=== PATIENT | female | born 1985 | race Caucasian/White ===

== ENCOUNTER 2025-06-05 05:24 | Emergency (ER) | payer OTHER, SELFPAY ==
[2025-06-05 05:26] VITALS: BP 128/83
[2025-06-05 06:39] LABS: Hematocrit 39.3 % (37.0-47.0); Hemoglobin 13.3 g/dL (12.0-16.0); Mean Corp Hgb Conc. 33.8 g/dL (33.0-37.0); Mean Corpuscular Volume 82.6 fL (81.0-99.0); Nucleated Red Blood Cells % 0 %; Platelet Count 267 10^3/uL (130-400); Red Cell Dist. Width 13.2 % (11.5-14.5)
--- NOTE | 2025-06-05 07:04 | ED.GENMED ---
Addendum entered and electronically signed by Giovanna Urias NP 06/07/25 07:10:
Pt called, she discussed neg Hep B immunity with [facility] and is scheduled to f/u there.
Original Note:
History of Present Illness
General
Chief Complaint: Blood and Body Fluid Exposure
Source: patient
Exam Limitations: none
Time Seen by Provider: 06/05/25 06:07
Nursing documentation reviewed up to this point in time: agreed with
History of Present Illness
History of Present Illness:
40-year-old female with no reported chronic medical issues presents to the ER for evaluation after an occupational exposure. 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 She says that she was working with a patient who reported possible HIV positive
And apparently has history of polysubstance use. She was unhooking and removing IV line which splashed into her eyes mostly in her right eye. Patient did wash out her eyes immediately and came to the ER for evaluation. Exposure source testing is
pending. Patient has no acute complaints.
Review of Systems
Review of Systems
All Other Systems: ROS reviewed and negative except as documented in HPI and ROS
Constitutional: Denies fever
EENT: Reports other (Denies eye pain)
Phy Exam
Physical Exam
Physical Exam:
General: Well appearing and non-toxic
HEENT: protecting airway
Neck: appears supple
CV: No evidence of cyanosis
Resp: No accessory muscle use
Abd: Non-distended
Extremities: No deformities
Neuro: Alert
Psych: Normal affect
Skin: Intact
Scores
Heart Failure Risk
Heart Failure Risk Score: Not Applicable
Heart Score for Chest Pain Patients
STEMI patient?: Not applicable
Withdrawal Assessment of Alcohol
Withdrawal Assessment Completed?: Not applicable
Course
Orders/Labs/Results
Orders:
Orders
06/05/25 06:10
Pt has had a significant HIV exposure? Routine
HIV Exposure is significant?: Yes
06/05/25 06:11
Test Result ONCE
06/05/25 06:27
Complete Blood Count/With Diff Urgent
Comprehensive Metabolic Panel Urgent
HCG, Serum Qualitative Screen Urgent
HIV Combo Urgent
Hepatitis B Surface Antibody Urgent
Hepatitis B Surface Antigen Urgent
Hepatitis C Antibody Urgent
06/05/25 06:35
Emtricitabine/Tenofovir [Truvada Tablet] 1 tablet PO NOW STA
Raltegravir Potassium [Isentress] 400 mg PO NOW STA
Abnormal Lab Results
06/05/25
06:27
Absolute Lymphs (auto) 3.7 H 10^3/uL
(1.2-3.4)
06/05/25 06:27
Vital Signs
Initial and Last Documented VS:
Initial Vital Signs
Temp Pulse Resp BP Pulse Ox
36.7 C 82 18 128/83 97
06/05/25 05:26 06/05/25 05:26 06/05/25 05:26 06/05/25 05:26 06/05/25 05:26
Last Documented Vital Signs
Temp Pulse Resp BP Pulse Ox
36.7 C 82 18 128/83 97
06/05/25 05:26 06/05/25 05:26 06/05/25 05:26 06/05/25 05:26 06/05/25 05:26
MDM/Problems Addressed
Differential Diagnosis Includes:
Occupational exposure
MDM/Problems Addressed:
40-year-old female presents after occupational exposure�IV line unhooked and splashed in patient's face. Patient washed out eyes. We sent basic screening labs, hepatitis and HIV panel. Source patient testing is pending. Will initiate
postexposure prophylaxis. Follow-up with occupational health. I texted physicians blacksmith assistant for occupational health to facilitate follow-up. Spoke to patient about precautions regarding postexposure prophylactic medications including avoiding
, we spoke about follow-up in detail and all questions were answered.
*Pulse Oximetry
SaO2: 97
Oxygen Mode of Delivery: Room air
Patient hypoxic: no (97%)
*Critical Care Note
Total Time (30-74mins, 75-104mins- exclusive of procedures): Not Applicable
Data Reviewed
Source: patient and records
Patient Management
Discussion with other providers: Other (Discussed with occupational health)
ED Attending Note
-
Portions of this chart may have been created with voice recognition software.� Occasional wrong word or��sound alike� substitutions may have occurred due to the inherent limitations of voice recognition software.
Discharge Plan
Departure
Patient Disposition: Home (Routine Discharge)
Date of Disposition: 06/05/25
Time of Disposition: 06:43
Patient with high blood pressure during this ER visit?: No
Discharge Problem:
Exposure to bloodborne pathogen
Instructions: Exposure to HIV or hepatitis through blood or body fluids
Prescriptions:
New
emtricitabine-tenofovir (TDF) [Truvada] 200-300 mg tablet
1 tab PO DAILY Qty: 4 0RF
Isentress 400 mg tablet
400 mg PO BID Qty: 9 0RF
Referrals:
[facility] [[facility]] - Call in 1-3 days for appt
Stand Alone Forms: Blood Body/Fluid Exposure
Activity Restrictions/Additional Instructions:
You should call to schedule an appointment with occupational health to follow-up after your ER visit as we discussed.
Interventions
Interventions:
*Risk Screen - Suicide Last Done: 06/05/25 05:29
*General Assessment Last Done: 06/05/25 05:29
*Neglect/Abuse Screening Last Done: 06/05/25 05:29
*ED COVID-19 Vaccine History Last Done: 06/05/25 05:29
ED-EENT Assessment Last Done: 06/05/25 06:00
Discharge Date and Time
Print Language: THAI
[2025-06-05 07:05] LABS: HCG, Serum Qualitative Screen Negative
[2025-06-05 07:08] LABS: ALT (SGPT) 21 U/L (0-35); AST (SGOT) 24 U/L (14-36); Albumin 4.8 g/dl (3.5-5.0); Alkaline Phosphatase 67 U/L (38-126); Blood Urea Nitrogen 18 mg/dl (7-17); Calcium 9.2 mg/dl (8.4-10.2); Carbon Dioxide 23 mmol/L (22-30); Chloride 105 mmol/L (98-107); Glucose 95 mg/dl (70-99); Potassium 4.3 mmol/L (3.5-5.1); Sodium 138 mmol/L (135-145); Total Protein 7.6 g/dl (6.3-8.2); eGFR > 60.00
[2025-06-05] MEDS: ISENTRESS 400 MG PO (07:14)
[2025-06-05] MEDS: TRUVADA TABLET 1 TABLET PO (07:14)
[2025-06-05 09:26] LABS: Hepatitis B Surface Antigen Negative (Negative)
[2025-06-05 09:43] LABS: Hepatitis C Antibody Negative (Negative)
== END 2025-06-05 07:29 | disposition home or self-care (01) ==
LOC: EMR 05:24
PROVIDERS: EMERGENCY PHYSICIAN Emergency Medicine
DX: Z77.21 Contact with and (suspected) exposure to potentially hazardous body fluids (principal); Y99.0 Civilian activity done for income or pay
CPT/HCPCS: 99283; 80053; 84703; 85025; 86706; 86803; 87340; 87389